=== PATIENT | female | born 2000 | race Caucasian/White ===

== ENCOUNTER → 2020-06-11 16:16 | Outpatient (BNVA) | payer BC, SELFPAY | PROVIDERS: Family Provider Nurse Practitioner Family; PCP Nurse Practitioner Family; Referring Provider Dermatology; Visit Provider Dermatology | DX: L70.0 Acne vulgaris (principal) | CPT/HCPCS: 99203; 99204 ==

== ENCOUNTER → 2020-10-16 14:44 | Outpatient (BNVA) | payer BC, SELFPAY | PROVIDERS: PCP Nurse Practitioner Family; Referring Provider Nurse Practitioner; Visit Provider Podiatrist Foot & Ankle Surgery | DX: S93.401A Sprain of unspecified ligament of right ankle, initial encounter (principal); X58.XXXA Exposure to other specified factors, initial encounter | CPT/HCPCS: 73610 ==

== ENCOUNTER 2021-01-01 06:00 | Outpatient (RCR) | payer BC, SELFPAY | END 2021-01-18 23:59 | disposition home or self-care (01) | LOC: SPT 06:00 | PROVIDERS: PCP Nurse Practitioner Family; Referring Provider Podiatrist Foot & Ankle Surgery; Visit Provider Podiatrist Foot & Ankle Surgery | DX: M25.571 Pain in right ankle and joints of right foot (principal) | CPT/HCPCS: 97161 ==

== ENCOUNTER → 2022-12-19 09:38 | Outpatient (BNVA) | payer MEDICAID, SELFPAY | PROVIDERS: PCP Nurse Practitioner Family; Visit Provider Nurse Practitioner Women's Health | DX: Z01.419 Encounter for gynecological examination (general) (routine) without abnormal findings (principal); Z83.49 Family history of other endocrine, nutritional and metabolic diseases; L73.9 Follicular disorder, unspecified | CPT/HCPCS: 84443; 88175 ==

== ENCOUNTER 2023-01-01 08:26 | Emergency (ER) | payer MEDICAID, SELFPAY ==
[2023-01-01] VITALS (7 sets, daily range): BP systolic 106–112; BP diastolic 58–78; PULSE 55; RESP 15; TEMP 36.7; O2SAT 99–100; BMI 24.3
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
[2023-01-01] MEDS: ketorolac 30 mg/mL INJ IVP (08:40)
[2023-01-01 08:47] LABS: Basophils # 0.1 10^3/uL (0.0-0.1); Eosinophils # 0.3 10^3/uL (0.0-0.8); Eosinophils % 4.8 %; Hematocrit 37.1 % (37.0-47.0); Hemoglobin 12.3 g/dL (11.5-15.3); Lymphocytes # 1.7 10^3/uL (0.8-4.8); Lymphocytes % 28.1 %; Mean Corpuscular HGB Conc 33.2 g/dL (30.0-36.0); Mean Corpuscular Hemoglobin 30.1 pg (28.0-34.0); Mean Corpuscular Volume 90.7 fl (81-99); Mean Platelet Volume 9.3 fL (7.4-10.4); Monocytes # 0.5 10^3/uL (0.2-0.9); Neutrophils # 3.46 10^3/uL (1.8-7.7); Neutrophils % 57.4 %; Nucleated Red Blood Cells % 0 %; Platelet Count 248 10^3/cmm (130-400); Red Blood Count 4.09 10^6/uL (4.1-5.3); Red Cell Distribution Width 12.9 % (12.1-15.1)
[2023-01-01 09:02] LABS: HCG, Serum Qual Negative (Negative)
[2023-01-01 09:04] LABS: Alanine Aminotransferase 17 U/L (0-33); Albumin Level 4.2 g/dL (3.5-5.2); Alkaline Phosphatase 37 U/L (35-105); Aspartate Amino Transferase 19 U/L (0-32); Blood Urea Nitrogen 20 mg/dL (6-20); Calcium 9.1 mg/dL (8.5-10.5); Carbon Dioxide 25 mmol/L (22-29); Chloride 104 mmol/L (98-107); Globulin 2.3 g/dL (1.3-4.6); Glomerular Filtration Rate 77.6 mL/min (90-130); Glucose 128 mg/dL (65-115); Osmolality Calculated 292 mOsm/kg (285-295); Sodium 139 mmol/L (136-145); Total Bilirubin 0.2 mg/dL (0.15-1.2); Total Protein 6.5 g/dL (6.6-8.7)
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
[2023-01-01] MEDS: iohexol 350 mg/mL 500 mL Btl (per mL) IV (10:38)
[2023-01-01 11:25] LABS: Add Urine Microscopic? YES; Bilirubin Urine Neg (Negative); Blood Urine 2+ (Negative); Glucose Urine UA Norm (Normal); Ketones Urine Negative (Negative); Leukocyte Esterase Urine Negative (Negative); Nitrate Urine Negative (Negative); Protein Urine Neg (Negative); Urine Appearance Clear (CLEAR); Urine Color Yellow (Yellow); Urobilinogen Urine Neg (Negative); pH Urine 7 (5-7)
[2023-01-01 11:29] LABS: Add Urine Culture? No; Bacteria Urine TRACE /hpf; Mucus Urine TRACE /hpf; RBC Urine 0-4 /hpf (0-2); Squamous Epithelial Cell Urine 0-4 /hpf (0-5); WBC Urine 0-4 /hpf (0-5)
[2023-01-01] MEDS: tetanus-dipt-pertussis 0.5 mL SDV IM (12:10)
== END 2023-01-01 12:24 | disposition home or self-care (01) ==
PROVIDERS: Emergency Provider Family Medicine; PCP Nurse Practitioner Family
DX: S39.012A Strain of muscle, fascia and tendon of lower back, initial encounter (principal); T14.8XXA Other injury of unspecified body region, initial encounter; V49.3XXA Car occupant (driver) (passenger) injured in unspecified nontraffic accident, initial encounter
CPT/HCPCS: 70450; 70486; 71045; 71260; 72125; 72128; 72131; 72170; 74177; 80053; 81001; 84703; 85025; 90471; 90715; 96374; 99285; J1885; Q9967

== ENCOUNTER 2023-05-04 12:41 | Outpatient (CLI) | payer BC, MEDICAID, SELFPAY ==
--- NOTE | 2023-05-04 12:49 | XRR_ITS ---
PROCEDURE INFORMATION: Exam: XR Abdomen Exam date and time: 05/04/2023 12:52 PM Age: 23 years old Clinical indication: Constipation; Patient HX: Constipated for 5 days; Additional info: K59.00 - constipation, unspecified TECHNIQUE: Imaging protocol: Radiologic exam of the abdomen. Views: Frontal supine view of the abdomen. 1 View. COMPARISON: CT chest abdpel w/*[id number] 01/01/2023 10:28 AM FINDINGS: Gastrointestinal tract: [id number] fecal burden scattered throughout the colon. No bowel dilation. Bones/joints: Unremarkable. XR/XR KUB [id number] IMPRESSION: No acute findings.
== END 2023-05-04 12:42 | disposition home or self-care (01) ==
PROVIDERS: PCP Nurse Practitioner Family; Visit Provider Registered Nurse
DX: K59.00 Constipation, unspecified (principal)
CPT/HCPCS: 74018; 80053

== ENCOUNTER → 2023-05-12 16:48 | Outpatient (BNVA) | payer BC, MEDICAID, SELFPAY | PROVIDERS: PCP Nurse Practitioner Family; Visit Provider Registered Nurse | DX: R19.8 Other specified symptoms and signs involving the digestive system and abdomen (principal); K52.29 Other allergic and dietetic gastroenteritis and colitis | CPT/HCPCS: 86003; 86008 ==

== ENCOUNTER → 2023-05-15 10:23 | Outpatient (BNVA) | payer BC, MEDICAID, SELFPAY | PROVIDERS: PCP Nurse Practitioner Family; Visit Provider Registered Nurse | DX: K52.29 Other allergic and dietetic gastroenteritis and colitis (principal) | CPT/HCPCS: 86008 ==

== ENCOUNTER 2023-07-09 18:29 | Emergency (ER) | payer BC, MEDICAID, SELFPAY ==
--- NOTE | 2023-07-09 18:32 | XRR_ITS ---
PROCEDURE INFORMATION: Exam: XR Right Ankle Exam date and time: 07/09/2023 7:35 PM Age: 23 years old Clinical indication: Injury or trauma; Fall; Swelling (edema); Ankle; Right TECHNIQUE: Imaging protocol: Radiologic exam of the right ankle. Views: 3 or more views. COMPARISON: No relevant prior studies available. FINDINGS: Bones/joints: The ankle mortise is intact. There are no fractures noted. Soft tissues: There is soft tissue swelling noted over the lateral malleolus. XR/XR ankle RT min 3V* [id number] IMPRESSION: No fracture or dislocation. Significant soft tissue swelling over the lateral malleolus.
[2023-07-09 18:53] VITALS: BP 126/77; PULSE 70; RESP 16; TEMP 36.9; O2SAT 100; BMI 24.3
--- NOTE | 2023-07-09 19:14 | W.ED.EXTPRO ---
HPI - Extremity Problem General: Chief complaint: Extremity Injury, Lower Stated complaint: Hurt right ankle Time Seen by Provider: 07/09/23 19:14 History of Present Illness: 23-year-old female comes in today with injury to the right ankle. Patient was climbing a rope and on her way down she let go about 4 feet and accidentally landed on the rope causing her to roll her right ankle. After the injury patient had some significant swelling to the lateral aspect of the ankle. Patient had difficulty with weightbearing. Patient appears nontoxic. Patient appears in mild pain at rest. Review of Systems General: Reports: 10 or more systems reviewed and unremarkable except in HPI and below Musc: Reports: extremity pain and extremity swelling [facility] ED PFSH: Medical History Grade 2 ankle sprain No pertinent past medical history neghx: htn,dm,thyroid,dvt/pe PCP: None Surgical History History of appendectomy Family History Mother Thyroid disease Unknown Hypertension Other CAD (coronary artery disease) Denies family history of Colon cancer Ovarian cancer Diabetes Hyperlipidemia Breast cancer Uterine cancer Stroke Social History Smoking and tobacco/nicotine status: never used tobacco/nicotine Alcohol intake: never Substance/Drug Use: never Adopted: No Caregiver/support person: No Lives independently: No Household members: spouse service: No Current occupational status: employed Sexually active: Yes Do you think of yourself as: Straight/Heterosexual Current gender identity: Female Physical Exam Const: COMMON NORMALS: alert HENMT: COMMON NORMALS: normocephalic HEAD & SCALP: normocephalic Neck/C-Spine: COMMON NORMALS: full ROM Resp: COMMON NORMALS: normal respiratory effort Cardio: COMMON NORMALS: regular rate RATE: regular rate Back/Pelvis: COMMON NORMALS: thoracic and lumbar spine normal to inspection Extremity: RIGHT LOWER EXTREMITY: Yes foot & digits (Lateral ankle swelling and tenderness.) Right ankle: Yes inspection, Yes palpation, Yes ROM and Yes neurovascular exam Neuro: SENSORIUM/ORIENTATION: Yes alert Skin: COMMON NORMALS: turgor normal GENERAL SKIN EXAM: turgor normal Course Vital Signs: Vital signs: Vital Signs Temperature 98.4 F 07/09/23 18:53 Pulse Rate 70 07/09/23 18:53 Respiratory Rate 16 07/09/23 18:53 Blood Pressure 126/77 07/09/23 18:53 Pulse Oximetry 100 07/09/23 18:53 Oxygen Delivery Me thod Room Air 07/09/23 18:53 MDM - Extremity (Nontraumatic) Medical Decision Making 23-year-old female comes in today with injury to the right ankle. On exam patient has swelling and tenderness to the lateral aspect of the ankle. Positive put dorsal pedis pulses noted. Distal sensation is intact. Differential diagnosis includes but not limited to fracture, sprain, contusion. X-ray of the ankle noted no acute fracture with significant soft tissue swelling. Recommended a elastic bandage and crutches until weightbearing. Discussed need for follow-up or return to ER. Patient reported understanding and agreed to plan. XR interpretation done by ED provider, pending radiology final review Discharge Plan Discharge Patient Disposition: Home Clinical Impression: Ankle sprain and strain Condition: Stable Prescriptions: No Action lactulose 20 gram/30 mL solution 20 g PO BID 5 Days Qty: 300 0RF Discharge Orders: Discharge ED (Routine); Ordered 07/09/23 Ordered By: Chad Garcia Referrals: Danica Flower FNP [Primary Care Provider] - Discharge Diet: Usual diet Discharge Activity: Increase activity as tolerated Patient Instructions: Ankle Sprain (ED) Activity Restrictions/Additional Instructions: Use an elastic bandage for comfort and support. Use crutches until he can bear weight comfortably. Most people usually use the crutches for 2 to 3 days and then start bearing weight. Within 5 to 7 days most people usually have minimal pain with ambulation. If after 5 to 7 days you think you have been not seeing any improvement I would recommend follow-up with repeat x-ray. Return to ER for new concerns. Coding Level of Care Code ED [employer] Software Developer for Sherri Pickett
[2023-07-09 20:00] VITALS: BP 126/77; PULSE 70; RESP 16; TEMP 36.9; O2SAT 100
== END 2023-07-09 20:02 | disposition home or self-care (01) ==
PROVIDERS: Emergency Provider Nurse Practitioner Family; PCP Registered Nurse
DX: S93.401A Sprain of unspecified ligament of right ankle, initial encounter (principal); S96.911A Strain of unspecified muscle and tendon at ankle and foot level, right foot, initial encounter; X50.1XXA Overexertion from prolonged static or awkward postures, initial encounter
CPT/HCPCS: 73610; 99283; E0114

== ENCOUNTER 2025-01-27 22:10 | Inpatient (IN) | payer SELFPAY ==
[2025-01-27 20:52] VITALS: BMI 29.6
[2025-01-27 21:17] VITALS: BP 128/78; PULSE 83
[2025-01-27 21:38] VITALS: BP 120/74; PULSE 83
[2025-01-27 21:58] VITALS: BP 113/64; PULSE 81
[2025-01-27 22:15] LABS: Basophils % 0.3 %; Eosinophils # 0.2 10^3/uL (0.0-0.8); Eosinophils % 1.7 %; Hematocrit 33.7 % (36-47); Lymphocytes # 1.8 10^3/uL (0.8-4.8); Lymphocytes % 18.8 %; Mean Corpuscular HGB Conc 33.8 g/dL (30-55); Mean Corpuscular Hemoglobin 29.7 pg (27-33); Mean Corpuscular Volume 87.8 fl (85-98); Mean Platelet Volume 10.3 fL (7.4-10.4); Monocytes # 0.7 10^3/uL (0.2-0.9); Monocytes % 6.9 %; Neutrophils # 6.63 10^3/uL (1.8-7.7); Neutrophils % 70.6 %; Nucleated Red Blood Cells % 0 %; Platelet Count 179 10^3/cmm (157-399); Red Blood Count 3.84 10^6/uL (3.85-5.65); Red Cell Distribution Width 13.2 % (12.1-15.1)
[2025-01-27 22:46] VITALS: BP 111/59; PULSE 78
[2025-01-27] MEDS: dextrose 5%-lactated ringers 1,000 ML 125 ML IV (22:46)
[2025-01-27] MEDS: ampicillin 2,000 MG in sodium chloride 0.9% (plus) 50 ML 100 MG IV (22:46)
[2025-01-27 23:35] VITALS: TEMP 36.4
[2025-01-28] VITALS (14 sets, daily range): BP systolic 90–128; BP diastolic 55–80; PULSE 66–105; RESP 15–16; TEMP 36.4–36.8
[2025-01-28] MEDS: ondansetron 2 mg/ML SDV 2 mL 4 MG IVP (00:20)
[2025-01-28] MEDS: oxytocin 30 UNIT/500 ML BAG 600 UNIT IV (01:17)
[2025-01-28] MEDS: lidocaine 2% INJ 20 mL INJECTION (01:20)
--- NOTE | 2025-01-28 01:40 | PM.OPHPUD ---
Labor & Delivery H&P Update Date of Procedure: January 28, 2025 Date H&P Performed: 01/19/25 Admission Diagnosis: IUP at 36w0d gestation SROM with active labor Planned procedure: Expectant management of labor and delivery
--- NOTE | 2025-01-28 01:41 | P.PCNOB_ITS ---
Delivery Note: Date of delivery: January 28, 2025 Procedure: Normal spontaneous vaginal Estimated blood loss (mL): 300 Pre-Delivery Course: The patient had routine care at [facility]. There were no complications during the . labs: Blood type A+ antibody negative, hepatitis B nonreactive, hepatitis C nonreactive, HIV nonreactive, rubella immune, RPR nonreactive, GC chlamydia negative, she passed her glucose tolerance test, GBS unknown. Delivery: This is a 25-year-old G1, P0 at 36 weeks 0 days gestation who presented to labor and delivery with spontaneous rupture of membranes and active labor. Rupture membranes revealed clear fluid and was at approximately 1920. The patient was 4 cm dilated and completely effaced upon admission. The patient was given 1 dose of ampicillin since she was GBS unknown. She declined epidural. Her labor progressed well on its own and she had a normal spontaneous vaginal delivery of a viable male weight 2810 g, 6 pounds 3 ounces, Apgars 8 and 9 over an intact perineum. The infant was suctioned at delivery and placed on the mother's chest. After the 1 minute sneha the cord was clamped and cut. The placenta was delivered grossly intact and normal to inspection. There was a first-degree left periurethral tear that became hemostatic. There was a second- degree vaginal laceration that was first anesthetized using 2% lidocaine. The laceration was then repaired using 3-0 chromic in a running fashion. Mother and were doing well after delivery. History History History 0 Term 0 Miscarriages/Ectopic Living Children A&P Assessment and plan (1) Normal spontaneous vaginal delivery: PDMP PDMP Reviewed: Not Reviewed Coding Level of Care Code Acute Code for Chg Fwd Diagnoses Normal spontaneous vaginal delivery O80
[2025-01-28] MEDS: docusate sodium 100 mg Capsule PO ×2 (08:25→18:19)
[2025-01-28] MEDS: PRENATAL VIT NO.130/IRON/FOLIC 1 EACH TABLET PO (08:25)
[2025-01-28] MEDS: ibuprofen 800 mg tablet PO ×2 (11:03→18:19)
--- NOTE | 2025-01-28 11:25 | PC.NURSE ---
Patient refused motrin scheduled this AM. Patient requested motrin during this hour. RN educated patient that medications listed for admin were safe for . Patient verbalized understanding. Patient up to shower at this time. JENNA KITCHEN
[2025-01-28] MEDS: benzocaine-menthol 78 gm Canister 1 SPRAY TOPICAL (12:22)
[2025-01-28 13:57] LABS: Mean Corpuscular HGB Conc 33.2 g/dL (30-55); Mean Corpuscular Hemoglobin 29.1 pg (27-33); Mean Corpuscular Volume 87.5 fl (85-98); Platelet Count 172 10^3/cmm (157-399); Red Cell Distribution Width 13.2 % (12.1-15.1); White Blood Count 11.93 10^3/uL (3.29-11.43)
[2025-01-29] MEDS: ibuprofen 800 mg tablet PO ×2 (00:06→06:24)
[2025-01-29 04:00] VITALS: BP 103/64; PULSE 73; TEMP 36.6
[2025-01-29 08:40] VITALS: BP 105/62; PULSE 64; RESP 16; TEMP 37
[2025-01-29] MEDS: docusate sodium 100 mg Capsule PO (08:45)
--- NOTE | 2025-01-29 10:45 | PM.DCS ---
Discharge Providers Date of Admission: 01/27/25 22:10 Date of Discharge: January 29, 2025 Attending Provider at Admission: Heydi Rios MD Attending Provider at Discharge: Heydi Rios MD Primary Care Provider: RADHA Garcia Diagnoses at Discharge Discharge Diagnosis (1) Normal spontaneous vaginal delivery: Status: Acute Reason for Visit Reason for Visit: Ctx., poss. [facility] Hospital Course Hospital Course This is a 25-year-old G1 now P1 who presented to labor and delivery with spontaneous rupture of membranes and active labor. At 36 weeks 0 days gestation. She had a normal spontaneous vaginal delivery of a viable male infant at 36 weeks 1 day gestation. Mother has been doing well. She is ambulating, tolerating a regular diet, she has average vaginal bleeding and is comfortable with discharge home Physical Exam Narrative: Alert and oriented, holding in bed, heart regular rate and rhythm, lungs clear to auscultation bilaterally, abdomen is soft and nontender, fundus is firm, no calf tenderness no edema Discharge Data Studies Completed and Pending Laboratory Results WBC 11.93 10^3/uL (3.29-11.43) H 01/28/25 13:30 RBC 3.20 10^6/uL (3.85-5.65) L 01/28/25 13:30 Hgb 9.30 g/dL (11.27-16.99) L 01/28/25 13:30 Hct 28.0 % (36-47) L 01/28/25 13:30 MCV 87.5 fl (85-98) 01/28/25 13:30 MCH 29.1 pg (27-33) 01/28/25 13:30 MCHC 33.2 g/dL (30-55) 01/28/25 13:30 RDW 13.2 % (12.1-15.1) 01/28/25 13:30 Plt Count 172 10^3/cmm (157-399) 01/28/25 13:30 MPV 10.0 fL (7.4-10.4) 01/28/25 13:30 Neut % (Auto) 70.6 % 01/27/25 21:30 Lymph % (Auto) 18.8 % 01/27/25 21:30 Stokes % (Auto) 6.9 % 01/27/25 21:30 Eos % (Auto) 1.7 % 01/27/25 21:30 Baso % (Auto) 0.3 % 01/27/25 21:30 Neut # (Auto) 6.63 10^3/uL (1.8-7.7) 01/27/25 21:30 Lymph # (Auto) 1.8 10^3/uL (0.8-4.8) 01/27/25 21:30 Stokes # (Auto) 0.7 10^3/uL (0.2-0.9) 01/27/25 21:30 Eos # (Auto) 0.2 10^3/uL (0.0-0.8) 01/27/25 21:30 Baso # (Auto) 0.0 10^3/uL (0.0-0.1) 01/27/25 21:30 Nucleated RBC % (auto) 0 % 01/27/25 21: Nucleated RBCs # 0.0 /100WBC 01/27/25 21:30 Blood Type A Positive 01/27/25 21:30 Rho(D) Type Rh positive 01/27/25 21:30 Antibody Screen Negative 01/27/25 21:30 Vitals Last Vital Signs Temp 98.6 F 01/29/25 08:40 Pulse 64 01/29/25 08:40 Resp 16 01/29/25 08:40 BP 105/62 01/29/25 08:40 O2 Del Method Room Air 01/27/25 20:52 Discharge Plan Discharge Patient Disposition: Home Condition: Stable Prescriptions: No Action No Known Home Medications Discharge Orders: Discharge Order (Routine); Ordered 01/29/25 Ordered By: Heydi Rios Referrals: Heydi Rios MD [Physician, Family Practice] - 1 month Discharge Diet: Usual diet Discharge Activity: Limit activity as instructed Activity Restrictions/Additional Instructions: Nothing per vagina for 6 weeks Discharge Attestations Time Spent in Discharge Care*: less than 30 min Quality Metrics Clinical Quality Measures [ No reported AMI, CVA or VTE this stay] Coding Level of Care Code Acute Code for Chg Fwd Diagnoses Normal spontaneous vaginal delivery O80
[2025-01-29 17:00] VITALS: BP 138/74; PULSE 74; RESP 16; TEMP 36.9; O2SAT 99
== END 2025-01-29 17:00 | disposition home or self-care (01) | DRG 768 ==
LOC: OPOB 22:10 → OBGYN 22:10
PROVIDERS: Admitting Provider Family Medicine; PCP Family Medicine; Visit Provider Family Medicine
DX: O60.14X0 Preterm labor third trimester with preterm delivery third trimester, not applicable or unspecified (principal); Z37.0 Single live birth; O71.4 Obstetric high vaginal laceration alone; Z3A.36 36 weeks gestation of pregnancy
CPT/HCPCS: 36415; 59025; 59409; 83986; 85025; 85027; 86850; 86900; 96374; 99211; J0290; J2405; J2590; J7121; J9999

== ENCOUNTER 2025-08-24 14:46 | Outpatient (CLI) | payer BC, MEDICAID, SELFPAY ==
--- NOTE | 2025-08-24 14:53 | CTR_ITS ---
PROCEDURE INFORMATION: Exam: CT Neck With Contrast Exam date and time: 08/24/2025 3:20 PM Age: 25 years old Clinical indication: Parotid lymphadenopathy/enlarged lymph nodes, left side by ear and jaw-bb 3 months, right side by ear-bb 1.5 weeks TECHNIQUE: Imaging protocol: Computed tomography of the neck with contrast. Radiation optimization: All CT scans at this facility use at least one of these dose optimization techniques: automated exposure control; mA and/or kV adjustment per patient size (includes targeted exams where dose is matched to clinical indication); or iterative reconstruction. Contrast material: OMNI 350; Contrast volume: 100 ml; Contrast route: INTRAVENOUS (IV); COMPARISON: CT cervical spin wo con* [id number] 01/01/2023 8:45 AM RADIATION DOSE METRICS: Total DLP (mGy-cm): 142.04 FINDINGS: Paranasal sinuses: Mild mucosal thickening in left maxillary sinus. Salivary glands: 4 x 8 x 9 mm lymph node in the anterior aspect of the left parotid gland corresponding to the BB marker (12/17). The evaluation is somewhat suboptimal due to the metallic artifact from the BB marker. No definite lymph node corresponding to the posterior BB marker on the left parotid gland. Evaluation of this area is somewhat suboptimal due to the metallic artifact. Pharynx: Unremarkable. No significant tonsillar enlargement. Larynx: Unremarkable. Epiglottis is normal. Thyroid: Normal. No enlarged or calcified nodules. Trachea: Visualized trachea is unremarkable. Lungs: Unremarkable as visualized. Lymph nodes: Shotty lymph nodes at the anterior edge of the right parotid gland measuring 2 x 5 mm. 4 x 8 mm lymph node in the right parotid gland near the BB marker (/). Evaluation of the lower edge is somewhat suboptimal due to the metallic artifact from the BB marker. Shotty bilateral cervical lymph nodes are seen. This is not pathological by size criteria. Bones/joints: Unremarkable. No acute fracture. Soft tissues: Unremarkable. No significant soft tissue swelling. CT/CT neck w con* [id number] IMPRESSION: 1. Shotty lymph nodes in bilateral parotid glands corresponding to the BB markers as described. Evaluation is somewhat suboptimal due to metallic artifacts. Short-term imaging follow-up for stability is advised without BB marker. 2. Shotty bilateral cervical lymph nodes are seen. This is not pathological by size criteria. 3. Additional findings as described.
[2025-08-24] MEDS: iohexol 350 mg/mL 500 mL Btl (per mL) IV (15:27)
== END 2025-08-24 14:47 | disposition home or self-care (01) ==
LOC: RAD 14:49
PROVIDERS: PCP Registered Nurse; Visit Provider Family Medicine
DX: R59.0 Localized enlarged lymph nodes (principal)
CPT/HCPCS: 70491

== ENCOUNTER → 2025-09-11 09:17 | Outpatient (BNVA) | payer MEDICAID, SELFPAY | PROVIDERS: PCP Registered Nurse; Visit Provider Registered Nurse | DX: F32.A Depression, unspecified (principal); R60.0 Localized edema | CPT/HCPCS: 80048; 84443; 85007; 85027; 85651; 86140 ==